=== PATIENT | female | born 1985 | race Caucasian/White ===

== ENCOUNTER 2017-04-17 10:08 | Day surgery (SDC) | END 2017-04-17 14:21 | disposition home or self-care (01) ==

== ENCOUNTER 2018-07-14 09:26 | Day surgery (SDC) | payer OTHER ==
[~2018-07-14] VITALS: Ht 165.1 cm; Wt 73.1 kg
[~2018-07-14 09:26] MED LIST: NO MEDS
[2018-07-14 09:53] VITALS: Ht 165.1 cm; Wt 73.1 kg
[2018-07-14] MEDS ORDERED: OMEP40CA6 PO (10:05)
[2018-07-14 10:11] VITALS: BP 125/80; PULSE 120; RESP 18
[2018-07-14] MEDS ORDERED: MIDAZOLAM 1 MG/ML 2 ML INJ ONE ×2 (11:30)
[2018-07-14] MEDS ORDERED: FENTAnyl 50 MCG/ML VIAL ONE (11:30)
[2018-07-14 11:41] VITALS: BP 122/83; PULSE 98; RESP 18
== END 2018-07-14 12:53 | disposition home or self-care (01) ==
LOC: GIL 09:26
PROVIDERS: ATTEND Internal Medicine Gastroenterology
DX: K64.0 First degree hemorrhoids (principal)
CPT/HCPCS: 45378; 88305; J2250; J3010; Z7610